=== PATIENT | male | born 1985 | race Caucasian/White ===

== ENCOUNTER → 2021-06-12 | Outpatient (CLI) | payer OTHER | END | disposition home or self-care (01) | LOC: MRI 10:49 | PROVIDERS: ATTEND Colon & Rectal Surgery | DX: K60.5 Anorectal fistula (principal) | CPT/HCPCS: 72197 ==

== ENCOUNTER 2021-07-29 06:13 | Day surgery (SDC) | payer OTHER | END 2021-07-29 11:35 | disposition home or self-care (01) | LOC: CIR.AMB 06:13 | PROVIDERS: ATTEND Colon & Rectal Surgery | DX: K60.5 Anorectal fistula (principal); Z88.8 Allergy status to other drugs, medicaments and biological substances; I10 Essential (primary) hypertension ==

== ENCOUNTER 2021-12-29 06:39 | Inpatient (IN) | payer OTHER ==
[~2021-12-29] VITALS: Ht 167.6 cm; Wt 87.1 kg
[2021-12-31] MEDS ORDERED: DOCUSATE SODIU100 MG (07:59)
[2021-12-31] MEDS ORDERED: OXYCODONE HCL5 MG PO (19:04)
== END 2021-12-31 20:57 | disposition home or self-care (01) | DRG 348 ==
LOC: ER 06:39 → SEC-K 17:31 → O/R 12-30 11:24 → SURG 12-31 11:17
PROVIDERS: ADMIT Colon & Rectal Surgery; ATTEND Colon & Rectal Surgery
PROC: 0DBQ0ZZ Excision of Anus, Open Approach (ICD-10-PCS; principal; 2021-12-30 11:00)
DX: K60.5 Anorectal fistula (principal); K92.2 Gastrointestinal hemorrhage, unspecified; D12.9 Benign neoplasm of anus and anal canal; Z20.822 Contact with and (suspected) exposure to COVID-19